=== PATIENT | female | born 1950 | race Hispanic/Latino ===

== ENCOUNTER 2016-11-10 09:51 | Emergency (ER) | payer BC ==
[2016-11-10 11:24] LABS: Basophils % (Auto) 0.6 % (0.0-1.8); Eosinophils % (Auto) 2.3 % (0.0-4.3); Hematocrit 39.3 % (30.3-42.9); Mean Corpuscular HGB Conc 33 % (30-34); Mean Corpuscular Hemoglobin 32 pg (28-32); Mean Corpuscular Volume 96 fl (79-97); Platelet Count 177 K/mm3 (140-440); Red Cell Distribution Width 13.6 % (13.2-15.2)
--- NOTE | 2016-11-10 11:36 | XRay Report ---
Chest 2 views: History: Shortness of breath. Findings: Borderline cardiomegaly. Trachea is midline. No consolidation, pneumothorax or pleural effusion. Impression: Recommended. No acute changes.
[2016-11-10 12:12] LABS: Anion Gap 16 mmol/L; BUN/Creatinine Ratio 14.28; Blood Urea Nitrogen 10 mg/dL (7-17); Carbon Dioxide 28 mmol/L (22-30); Chloride 104.2 mmol/L (98-107); Glucose 83 mg/dL (65-100); Potassium 4.1 mmol/L (3.6-5.0); Sodium 144 mmol/L (137-145)
--- NOTE | 2016-11-10 15:27 | Emergency Department Report ---
ED General Adult HPI - General Chief complaint: Dyspnea/Respdistress Stated complaint: S.O.B Time Seen by Provider: 11/10/16 15:13 Source: patient, RN notes reviewed Mode of arrival: Ambulatory Limitations: No Limitations - History of Present Illness Initial comments: This is a 65-year-old female. She is previously unknown to me. Primary care Dr.: Justin Cardiology: Dr Polanco; [phone] Pulmonology: Dr. Rodriguez Past medical history includes obesity, obstructive sleep apnea, currently on CPAP therapy, hypertension, presumed paroxysmal atrial fibrillation. 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 The patient presents to the ER today complaining of shortness of breath. The shortness of breath has been present for 4-5 days. It worsens with physical exertion and decreases with rest. There is no chest pain. There is no nausea, vomiting or diaphoresis. There is no leg pain or leg swelling. No recent trips greater than 4 hours. No recent hospital admissions. No hematemesis. No bright red blood per rectum. The patient endorses compliance with her medications. -: Gradual Consistency: intermittent Improves with: rest Worsens with: movement Associated Symptoms: shortness of breath. denies: chest pain - Related Data Home Medications Medication Instructions Recorded Confirmed Last Taken Apixaban [Eliquis] 5 mg PO 11/10/16 Unknown Escitalopram Oxalate [Lexapro] 30 mg PO 11/10/16 Unknown Escitalopram [Lexapro] 10 mg PO DAILY 11/10/16 11/10/16 Unknown Metoprolol [Lopressor TAB] 50 mg PO 11/10/16 Unknown Allergies Allergy/AdvReac Type Severity Reaction Status Date / Time tetracycline Allergy Intermediate Rash Verified 11/10/16 10:09 ED Review of Systems ROS: Stated complaint: S.O.B Other details as noted in HPI Constitutional: denies: diaphoresis Eyes: denies: vision change ENT: denies: epistaxis Respiratory: shortness of breath Cardiovascular: denies: chest pain Gastrointestinal: denies: abdominal pain, nausea, vomiting Genitourinary: as per HPI Musculoskeletal: as per HPI, arthralgia, myalgia Skin: as per HPI Neurological: as per HPI. denies: headache Psychiatric: as per HPI ED Past Medical Hx - Past Medical History Previous Medical History?: Yes Hx of Cancer: Yes Additional medical history: A-Fib - Surgical History Past Surgical History?: Yes Additional Surgical History: Kidney - Social History Smoking Status: Never Smoker Substance Use Type: None - Medications Home Medications: Home Medications Medication Instructions Recorded Confirmed Last Taken Type Apixaban [Eliquis] 5 mg PO 11/10/16 Unknown History Escitalopram Oxalate [Lexapro] 30 mg PO 11/10/16 Unknown History Escitalopram [Lexapro] 10 mg PO DAILY 11/10/16 11/10/16 Unknown History Metoprolol [Lopressor TAB] 50 mg PO 11/10/16 Unknown History ED Physical Exam - General Limitations: No Limitations General appearance: alert, in no apparent distress - Head Head exam: Present: atraumatic, normocephalic - Eye Eye exam: Present: normal appearance, EOMI. Absent: nystagmus - ENT ENT exam: Present: normal exam, normal orophraynx, mucous membranes moist, normal external ear exam - Neck Neck exam: Present: normal inspection, full ROM. Absent: tenderness, meningismus - Respiratory Respiratory exam: Present: normal lung sounds bilaterally. Absent: respiratory distress, wheezes, rales, rhonchi, stridor, chest wall tenderness, accessory muscle use, decreased breath sounds, prolonged expiratory - Cardiovascular Cardiovascular Exam: Present: normal rhythm, bradycardia, normal heart sounds. Absent: systolic murmur, diastolic murmur, rubs, gallop - GI/Abdominal GI/Abdominal exam: Present: soft, normal bowel sounds. Absent: distended, tenderness, guarding, rebound, rigid, pulsatile mass - Extremities Exam Extremities exam: Present: normal inspection, full ROM, normal capillary refill. Absent: tenderness, pedal edema, joint swelling, calf tenderness - Back Exam Back exam: Present: normal inspection, full ROM. Absent: tenderness, CVA tenderness (R), CVA tenderness (L), muscle spasm, paraspinal tenderness, vertebral tenderness - Neurological Exam Neurological exam: Present: alert, oriented X3, normal gait, other (Extraocular movements intact. Tongue midline. No facial droop. Facial sensation intact to light touch in the V1, V2, V3 distribution bilaterally. 5 and 5 strength in 4 extremities.. Sensation is intact to light touch in 4 extremities.). Absent : motor sensory deficit - Psychiatric Psychiatric exam: Present: normal affect, normal mood - Skin Skin exam: Present: warm, dry, intact, normal color. Absent: rash ED Course Vital Signs 11/10/16 11/10/16 11/10/16 10:03 15:34 17:28 Temperature 98.4 F Pulse Rate 68 80 60 Respiratory 18 18 16 Rate Blood Pressure 135/71 Blood Pressure 115/34 [Left] O2 Sat by Pulse 98 99 98 Oximetry - Reevaluation(s) Reevaluation #1: 11/10/16 16:20 differential diagnosis: Pneumonia, acute coronary syndrome, pulmonary hypertension, worsening obstructive sleep apnea, cardiomyopathy, congestive heart failure, pulmonary embolus Assessment and plan: 65-year-old female with 4-5 days of pain with shortness of breath. She is afebrile, with reassuring vital signs, saturating well. Clinically, her lung sounds are clear, there are no rales or rhonchi, x-ray of the chest is not consistent with congestive heart failure, and her physical exam does not corroborate congestive heart failure. She reports compliance with her systemic anticoagulation, there are no pulmonary embolus or DVT risk factors, she is low risk by well's criteria. Nevertheless, a d-dimer will be sent to risk stratify the patient for pulmonary embolus. As per the [employer] clinical policy, myocardial infarction may be excluded with 1 set of cardiac enzymes if symptoms haven't present for greater than 8 hours. Her symptoms have been present for 4-5 days. I think the most likely etiology of the patient's shortness of breath is a natural progression of her underlying obstructive sleep apnea, and probable structural cardiac disease. Most likely, the patient has undiagnosed pulmonary hypertension. I have discussed the patient's care with her private personal injury litigation paralegal, Dr. Polanco, and he agrees to see the patient in the next few days for further outpatient evaluation and workup, assume her ER workup does not demonstrate any acute disease. Patient did report a mechanical fall, thinks that she hit her chin. She walks with a steady gait, has a GCS of 15, NIH score of 0. Saw her physical exam and mechanism of fall, I don't believe she requires plain films. Given that she take systemic anticoagulation, we will obtain a noncontrast CT scan of the brain. The patient's underlying bradycardia is appreciated, I don't believe she requires titration of her metoprolol, this was also discussed with her private personal injury litigation paralegal who agrees. Reevaluation #2: 11/10/16 17:[address] scan of the brain. Vital signs remain stable. Patient has outpatient arrange follow-up with her personal injury litigation paralegal. She will be discharged at this time. Return precautions were reviewed with the patient and her , who verbalized understanding. 11/10/16 17:55 ED Medical Decision Making - Lab Data Result diagrams: 11/10/16 10:55 11/10/16 10:55 Vital Signs 11/10/16 11/10/16 10:03 15:34 Temperature 98.4 F Pulse Rate 68 80 Respiratory 18 18 Rate Blood Pressure 135/71 O2 Sat by Pulse 98 99 Oximetry Lab Results 11/10/16 11/10/16 Range/Units 10:55 10:55 WBC 5.0 (4.5-11.0) K/mm3 RBC 4.10 (3.65-5.03) M/mm3 Hgb 13.0 (10.1-14.3) gm/dl Hct 39.3 (30.3-42.9) % MCV 96 (79-97) fl MCH 32 (28-32) pg MCHC 33 (30-34) % RDW 13.6 (13.2-15.2) % Plt Count 177 (140-440) K/mm3 Lymph % (Auto) 40.1 H (13.4-35.0) % Ransom % (Auto) 10.3 H (0.0-7.3) % Eos % (Auto) 2.3 (0.0-4.3) % Baso % (Auto) 0.6 (0.0-1.8) % Lymph # 2.0 (1.2-5.4) K/mm3 Ransom # 0.5 (0.0-0.8) K/mm3 Eos # 0.1 (0.0-0.4) K/mm3 Baso # 0.0 (0.0-0.1) K/mm3 Seg Neutrophils % 46.7 (40.0-70.0) % Seg Neutrophils # 2.3 (1.8-7.7) K/mm3 Sodium 144 (137-145) mmol/L Potassium 4.1 (3.6-5.0) mmol/L Chloride 104.2 (98-107) mmol/L Carbon Dioxide 28 (22-30) mmol/L Anion Gap 16 mmol/L BUN 10 (7-17) mg/dL Creatinine 0.7 (0.7-1.2) mg/dL Estimated GFR > 60 ml/min BUN/Creatinine Ratio 14.28 % Glucose 83 (65-100) mg/dL Calcium 9.0 (8.4-10.2) mg/dL Troponin T < 0.010 (0.00-0.029) ng/mL - EKG Data -: EKG Interpreted by Me Rate: bradycardia - EKG Data When compared to previous EKG there are: previous EKG unavailable 11/10/16 16:24 Sinus bradycardia, 56 bpm, premature ventricular contractions, borderline atrial enlargement, essentially unchanged from prior EKG from November 2012. - Radiology Data Radiology results: report reviewed, image reviewed Noncontrast CT scan of the brain is negative. X-ray the chest is negative Critical care attestation.: If time is entered above; I have spent that time in minutes in the direct care of this critically ill patient, excluding procedure time. ED Disposition Clinical Impression: Dyspnea Disposition: DISCHARGED TO HOME OR SELFCARE Is pt being admited?: No Does the pt Need Aspirin: No Condition: Stable Instructions: Dyspnea (ED) Additional Instructions: Continue current outpatient medications. Contact your personal injury litigation paralegal first thing tomorrow morning to arrange outpatient follow-up. Dr Polanco; [phone] Return to the ER right away with chest pain, worse shortness of breath, intractable nausea or vomiting, fevers or chills, confusion, change in mental status, inability to tolerate liquid feeds. Alternatively, follow-up with any of the listed cardiology groups. I recommend that you follow up with a personal injury litigation paralegal within the next 5-7 days. Referrals: MIREILLE KAY MD [Primary Care Provider] - 3-5 Days [facility] [Provider Group] - 3-5 Days [facility] [Provider Group] - 3-5 Days
[2016-11-10 17:29] VITALS: BP 115/34
--- NOTE | 2016-11-10 17:52 | Cat Scan Report ---
FINAL REPORT EXAM: CT HEAD/BRAIN WO CON HISTORY: fall on eliquis r out brain bleed TECHNIQUE: CT of the head was performed without intravenous contrast. PRIORS: None. FINDINGS: The ventricles are normal in shape and position. The ventricles are nondilated. No intracranial hemorrhage, mass, mass effect, midline shift or evidence of acute ischemic infarct. The basilar cisterns are patent. The paranasal sinuses are clear. The extracranial soft tissues demonstrate no abnormality. The calvarium is intact. The orbits are intact. The mastoid air cells are clear. IMPRESSION: No acute intracranial abnormality.
== END 2016-11-10 18:18 | disposition home or self-care (01) ==
LOC: ED 09:51
DX: R06.09 Other forms of dyspnea (principal); Z04.3 Encounter for examination and observation following other accident; I48.91 Unspecified atrial fibrillation; I10 Essential (primary) hypertension; G47.33 Obstructive sleep apnea (adult) (pediatric); Z88.8 Allergy status to other drugs, medicaments and biological substances; Z85.9 Personal history of malignant neoplasm, unspecified; W19.XXXA Unspecified fall, initial encounter; Y93.89 Activity, other specified; Y99.8 Other external cause status; Y92.89 Other specified places as the place of occurrence of the external cause
CPT/HCPCS: 36415; 70450; 71020; 80048; 83880; 84484; 85025; 85379; 93005; 93010

== ENCOUNTER 2017-01-06 12:51 | Outpatient (CLI) | payer MEDICARE ==
--- NOTE | 2017-01-06 14:02 | Mammography Report ---
Diagnostic right mammogram. History: Recall. Findings: On both the spot compression image and the 90 degree lateral medial view, there is no evidence of residual parenchymal asymmetry or mass. No architectural distortion is seen. Impression: No suspicious findings. BI-RADS code: 1. Recommendation: Annual screening.
== END 2017-01-06 12:52 | disposition home or self-care (01) ==
LOC: SPVWC 12:51
PROVIDERS: ATTEND Surgery
DX: R92.8 Other abnormal and inconclusive findings on diagnostic imaging of breast (principal)
CPT/HCPCS: G0206-RT

== ENCOUNTER 2017-12-28 13:32 | Outpatient (CLI) | payer MEDICARE ==
--- NOTE | 2017-12-28 14:43 | Mammography Report ---
BILATERAL DIGITAL SCREENING MAMMOGRAM with CAD: 12/28/17 13:32:00 CLINICAL: Routine screening. COMPARISON: 12/16/16 FINDINGS: There are bilateral scattered areas of fibroglandular density.No mass, architectural distortion or suspicious calcifications. IMPRESSION: No mammographic evidence of malignancy. BI-RADS CATEGORY: 1 -- Negative RECOMMENDATION: Routine mammographic screening in one year. COMMENT: Patient follow-up letters are generated by our [employer] application.
== END 2017-12-28 13:33 | disposition home or self-care (01) ==
LOC: SPVWC 13:32
PROVIDERS: ATTEND Surgery
DX: Z12.31 Encounter for screening mammogram for malignant neoplasm of breast (principal)
CPT/HCPCS: 77067

== ENCOUNTER 2019-01-03 12:31 | Outpatient (CLI) | payer MEDICARE ==
--- NOTE | 2019-01-03 13:29 | Mammography Report ---
BILATERAL DIGITAL SCREENING MAMMOGRAM WITH CAD INDICATION: Routine screening mammography. TECHNIQUE: Digital bilateral 2D mammography was obtained in the craniocaudal and mediolateral obliq ue projections. This examination was interpreted with the benefit of Computer-Aided Detection analysi s. COMPARISON: 12/28/2017 and 12/16/2016 FINDINGS: Breast Density: The breasts are heterogeneously dense, which may obscure small masses. No mass, architectural distortion or suspicious calcifications. A left lower inner biopsy clip. IMPRESSION:No mammographic evidence of malignancy. BI-RADS Category 2: Benign. No mammographic evidence of malignancy. Recommend routine screening ma mmography in one year. A "normal" or negative report should not discourage follow up or biopsy of a clinically significant f inding. A written summary of these findings will be mailed to the patient. The patient will be entered into a mammography reporting system which will generate a reminder letter for the patient's next appointmen t at the appropriate interval. The [employer] recommends yearly mammograms starting at age 40 and continuing as l clive as a woman is in good health. Breast MRI is recommended for women with an approximate 20-25% or greater lifetime risk of breast cancer, including women with a strong family history of breast or ova eric cancer or who have been treated for Hodgkin's disease. Signer Name: Edmundo Del Castillo MD Signed: 01/03/2019 1:25 PM Workstation Name: [id number]
== END 2019-01-03 12:32 | disposition home or self-care (01) ==
LOC: SPVWC 12:31
PROVIDERS: ATTEND Surgery
DX: Z12.31 Encounter for screening mammogram for malignant neoplasm of breast (principal)
CPT/HCPCS: 77067

== ENCOUNTER 2020-04-02 13:45 | Outpatient (CLI) | payer MEDICARE ==
--- NOTE | 2020-04-02 14:46 | Mammography Report ---
DIGITAL SCREENING MAMMOGRAM WITH CAD, 04/02/2020 INDICATION: Routine screening mammography. SCREENING MAMMO TECHNIQUE: Digital bilateral 2D mammography was obtained in the craniocaudal and mediolateral obliq ue projections. This examination was interpreted with the benefit of Computer-Aided Detection analysi s. COMPARISON: 12/16/2016 through 01/03/2019. FINDINGS: Breast Density: There are scattered areas of fibroglandular density. There is no evidence of dominant mass, suspicious calcifications or architectural distortion in eithe r breast. A left biopsy clip is again noted. IMPRESSION: No mammographic evidence of malignancy or significant change. Follow up recommendation: Routine yearly BI-RADS Category 2: Benign. A "normal" or negative report should not discourage follow up or biopsy of a clinically significant f inding. A written summary of these findings will be mailed to the patient. The patient will be entered into a mammography reporting system which will generate a reminder letter for the patient's next appointmen t at the appropriate interval. The [employer] recommends yearly mammograms starting at age 40 and continuing as l clive as a woman is in good health. Breast MRI is recommended for women with an approximate 20-25% or greater lifetime risk of breast cancer, including women with a strong family history of breast or ova eric cancer or who have been treated for Hodgkin's disease. Signer Name: Howard Beck MD Signed: 04/02/2020 2:41 PM Workstation Name: [id number]
== END 2020-04-02 13:46 | disposition home or self-care (01) ==
LOC: SPVWC 13:45
PROVIDERS: ATTEND Surgery
DX: Z12.31 Encounter for screening mammogram for malignant neoplasm of breast (principal); N64.89 Other specified disorders of breast
CPT/HCPCS: 77067